=== PATIENT | male | born 1965 | race Caucasian/White ===

== ENCOUNTER 2020-09-23 20:03 | Emergency (ER) | payer OTHER ==
[~2020-09-23] VITALS: Ht 177.8 cm; Wt 98.9 kg
[2020-09-23] MEDS ORDERED: AVAPRO150 MG (20:20)
[2020-09-23] MEDS ORDERED: VYTORIN 10-101 EACH (20:20)
== END 2020-09-24 03:11 | disposition home or self-care (01) ==
LOC: ER 20:03 → CPU-OBS 20:12 → ER 09-24 03:11
DX: R07.89 Other chest pain (principal); R00.2 Palpitations
CPT/HCPCS: G0378; G0379; 93005

== ENCOUNTER 2023-07-22 17:22 | Inpatient (IN) | payer OTHER ==
[~2023-07-22] VITALS: Ht 175.3 cm; Wt 98.0 kg
[~2023-07-22 17:22] MED LIST: AVAPRO150 MG; VYTORIN 10-101 EACH
[2023-07-22] MEDS ORDERED: AVAPRO150 MG PO (18:32)
[2023-07-22] MEDS ORDERED: BYSTOLIC10 MG PO (18:33)
[2023-07-22 20:11] LABS: HEMATOCRIT 48.7 % (39.0-48.0); HEMOGLOBIN 16.4 g/dL (13-16.00); MEAN CELL VOLUME 87.7 fL (80.0-100.00); MEAN CORPUSCULAR HEMOGLOBIN 29.6 pg (27.00-32.0); MEAN CORPUSCULAR HGB CONC 33.8 g/dl (32.0-36.0); RED BLOOD COUNT 5.55 M/uL (4.00-6.00); RED CELL DISTRIBUTION WIDTH 14.2 % (11.5-14.5)
[2023-07-22 20:21] LABS: INR 1.02; PARTIAL THROMBOPLASTIN TIME 30.5 SECONDS (22.0-34.0); PROTHROMBIN TIME 10.7 SECONDS (9.0-11.5)
[2023-07-22 20:27] LABS: ALBUMIN 3.1 gm/dL (3.4-5.0); BILIRUBIN TOTAL 0.47 mg/dL (0.3-1.2); CALCIUM 8.6 mg/dL (8.5-10.1); CREATININE SERUM 1.02 mg/dL (0.70-1.30); GFR 75.01; GLOBULINA 4.3 G/DL (2.4-3.5); POTASSIUM 4.22 mEq/L (3.5-5.1); TOTAL PROTEIN 7.4 gm/dL (6.4-8.2)
[2023-07-22 20:45] LABS: PLATELET COUNT 64 K/uL (150-450)
[2023-07-23 04:43] LABS: ALBUMIN 2.8 gm/dL (3.4-5.0); BILIRUBIN TOTAL 0.47 mg/dL (0.3-1.2); BILIRUBIN,CONJUGATED 0.16 mg/dL (0.0-0.2); BILIRUBIN,UNCONJUGATED 0.31 mg/dL (0.0-0.6); TOTAL PROTEIN 6.4 gm/dL (6.4-8.2)
[2023-07-24 08:30] LABS: HEMATOCRIT 45.7 % (39.0-48.0); HEMOGLOBIN 15.6 g/dL (13-16.00); MEAN CELL VOLUME 86.9 fL (80.0-100.00); MEAN CORPUSCULAR HEMOGLOBIN 29.7 pg (27.00-32.0); MEAN CORPUSCULAR HGB CONC 34.1 g/dl (32.0-36.0); RED BLOOD COUNT 5.27 M/uL (4.00-6.00); RED CELL DISTRIBUTION WIDTH 14.6 % (11.5-14.5)
[2023-07-24 08:48] LABS: PLATELET COUNT 110 K/uL (150-450)
== END 2023-07-24 11:22 | disposition home or self-care (01) | DRG 813 ==
LOC: ER 17:23 → MEDI 22:11
PROVIDERS: General Practice; Internal Medicine; Nurse Practitioner Family; ADMIT Internal Medicine; ATTEND Internal Medicine
DX: D69.6 Thrombocytopenia, unspecified (principal); A92.8 Other specified mosquito-borne viral fevers; R00.2 Palpitations